=== PATIENT | female | born 1980 | race African-American/Black ===

== ENCOUNTER 2023-10-06 06:02 | Emergency (ER) | payer OTHER ==
[2023-10-06] MEDS: methylPREDNISolone Sodium Succinate 125 MG/2 ML SDV IVPUSH ONE (06:40)
[2023-10-06] MEDS: Orphenadrine 60 MG/2 ML Inj IV ONE (06:43)
[2023-10-06] MEDS: Sodium Chloride 0.9% 10 ML Syringe FLUSH PRN (06:45)
== END 2023-10-06 07:32 | disposition home or self-care (01) ==
LOC: JD.ED 06:02
DX: S33.5XXA Sprain of ligaments of lumbar spine, initial encounter (principal); M53.3 Sacrococcygeal disorders, not elsewhere classified; I10 Essential (primary) hypertension; F17.210 Nicotine dependence, cigarettes, uncomplicated; Z88.6 Allergy status to analgesic agent; Z91.040 Latex allergy status; Z79.899 Other long term (current) drug therapy; X50.1XXA Overexertion from prolonged static or awkward postures, initial encounter
CPT/HCPCS: 96374; 96375; 99283; J2360; J2919; J3490

== ENCOUNTER 2023-10-12 00:29 | Emergency (ER) | payer OTHER | END 2023-10-12 01:35 | disposition home or self-care (01) | LOC: JD.ED 00:29 | DX: M62.830 Muscle spasm of back (principal); I10 Essential (primary) hypertension; Z91.040 Latex allergy status; Z88.6 Allergy status to analgesic agent | CPT/HCPCS: 99283 ==